=== PATIENT | male | born 1960 | race Caucasian/White ===

== ENCOUNTER → 2018-10-02 | Outpatient (CLI) | payer BC ==
--- NOTE | 2018-10-02 18:33 | PCVCIMAG ---
APPROVED REPORT Study performed: 10/02/2018 16:39:53 Exam: Stress Echocardiogram Indication: Hx a fib, s/p ablation, chest pain Patient Location: Echo lab Stress Nurse: Miri Chavez RN Status: routine Ht: 5 ft 9 in HR: 70 bpm BP: 150/88 mmHg Rhythm: NSR Procedure The patient underwent an Exercise Stress Test using the Leandro Protocol. Blood pressure, heart rate, and EKG were monitored. An Echocardiogram was performed by certified bench jeweler technician in four stages in quad fashion. At peak stress, four selected images were obtained and placed side by side with resting images for comparison. Stress Test Details Stress Test: Exercise stress testing was performed using a Leandro protocol. HR Resting HR: 69 bpmMax Heart Rate (APMHR): 163 bpm Max HR Achieved: 153 bpmTarget HR (85% APMHR): 138 bpm % of APMHR: 93 Recovery HR: 105 bpm HR response to stress: Normal HR response to stress BP Resting BP: 150/88 mmHg Max BP: 164/80 mmHg Recovery BP: 148/76 mmHg BP response to stress: Normal blood pressure response to stress. ECG Resting ECG: Sinus Rhythm Stress ECG: Sinus Rhythm ST Change: Normal Arrhythmia: None Recovery ECG: Sinus Rhythm Recovery ST Change: Normal Recovery Arrhythmia: None Clinical Reason for Termination: Maximal effort Stress Symptoms: Dyspnea Exercise duration: 12 min sec Highest Stage Achieved: Stage 4: 4.2 mph at 16% grade. Exercise capacity: 13.7 METs Overall Exercise Capacity for Age: Good Scale: Active Angina Score: None Pre-Stress Echo The resting Echocardiogram showed normal left ventricular contractility with an estimated Ejection Fraction of about >55%. Normal wall motion in all segments on baseline images. Post-Stress Echo The stress Echocardiogram showed normal left ventricular contractility with an estimated Ejection Fraction of about 65%. Normal augmentation of wall motion in all segments on post stress images. Clinical No clinical or ECG evidence for ischemia. Conclusion Clinical Response: Non-ischemic Exercise Capacity: Superior Stress ECG Response: Non-ischemic Stress Echo Images: Non-ischemic The left ventricle is normal in size and wall thickness in both the rest and stress images. Other Information Study Quality: Adequate <Conclusion> The left ventricle is normal in size and wall thickness in both the rest and stress images.
== END | disposition home or self-care (01) ==
LOC: PCVCIMAG 16:04
PROVIDERS: ATTEND Internal Medicine Cardiovascular Disease
DX: R07.89 Other chest pain (principal); Z82.49 Family history of ischemic heart disease and other diseases of the circulatory system; Z86.79 Personal history of other diseases of the circulatory system; Z88.0 Allergy status to penicillin; Z87.891 Personal history of nicotine dependence
CPT/HCPCS: 93325; 93351